=== PATIENT | female | born 1985 | race Caucasian/White ===

== ENCOUNTER → 2017-11-20 13:00 | Outpatient (CLI) | payer OTHER, SELFPAY | DX: Z23 Encounter for immunization (principal) | CPT/HCPCS: 90471; 90686 ==

== ENCOUNTER 2018-10-09 15:38 | Emergency (ER) | payer OTHER, SELFPAY ==
[2018-10-09 15:57] VITALS: BP 146/99; PULSE 84; RESP 16; O2SAT 99
[2018-10-09 16:00] VITALS: BP 146/99; PULSE 84; RESP 16; TEMP 36.8; O2SAT 99
--- NOTE | 2018-10-09 16:11 | DI.US.S_ITS ---
PROCEDURE: US PELVIC COMPLETE INDICATIONS: RIGHT PELVIC PAIN TECHNIQUE: Real-time scanning was performed of the pelvic organs, with image documentation. Additional endovaginal scanning was necessary due to incomplete visualization of the adnexal and endometrial structures by transabdominal scanning. COMPARISON: No prior studies are available for comparison. FINDINGS: Transabdominal scanning: Limited scanning through the kidneys shows no hydronephrosis. No pathologic free abdominal or pelvic fluid. Endovaginal scanning: Uterus: Uterus is normal in size at 8.8 x 4.3 x 5 x 7 cm. The endometrium measures 10 mm in combined thickness. Ovaries: The right ovary measures 2.4 x 3.4 x 4.4 cm and demonstrates a simple appearing cyst that measures up to 3.8 cm. The left ovary measures 2.3 x 1.1 x 1 cm. The left ovary demonstrates a pedunculated simple cyst that measures up to 1 cm. No adnexal masses are seen. IMPRESSION: No significant pelvic ultrasound abnormality is seen. 3.8 cm simple appearing right ovarian cyst. At clinical discretion, a followup pelvic ultrasound is suggested in 6 weeks to assure resolution/ improvement. Dictated by: Jerald Rodríguez M.D. on 10/09/2018 at 16:51 Approved by: Jerald Rodríguez M.D. on 10/09/2018 at 16:54
[2018-10-09 16:43] LABS: Add Manual Diff / Slide Review NO; Basophils Absolute Auto 0 /uL (0-100); Basophils Percent Auto 0.7 % (0-2); Eosinophils Absolute Auto 100 /uL (0-450); Eosinophils Percent Auto 1.5 % (2-4); Hematocrit 40.9 % (36-46); Lymphocytes Absolute Auto 1900 /uL (1100-4500); Mean Corpuscular HGB Conc 34.3 % (30-36); Mean Corpuscular Hemoglobin 30.6 PG (26-34); Mean Corpuscular Volume 89.2 fL (80-100); Monocytes Absolute Auto 300 /uL (0-900); Monocytes Percent Auto 5.5 % (3-14); Neutrophils Absolute Auto 3500 /uL (1500-7000); Neutrophils Percent Auto 60.3 % (50-75); Platelet Count 183 X10^3/uL (150-400); Red Blood Cell Count 4.59 X10^6/uL (4.0-5.2); Red Cell Distribution Width 12.5 % (11.6-14.8); White Blood Cell Count 5.8 X10^3/uL (4.5-11.0)
[2018-10-09] MEDS: SODIUM CHLORIDE 0.9% 1,000 ML 150 ML IV (16:47)
[2018-10-09] MEDS: MORPHINE 4 MG/ML INJ IV ×2 (16:47→18:27)
[2018-10-09] MEDS: ONDANSETRON 4 MG/2 ML INJ IV ×2 (16:47→18:27)
[2018-10-09 17:00] VITALS: BP 120/83; PULSE 58; O2SAT 98
[2018-10-09 17:05] LABS: HEMOLYSIS < 15 (0-50)
[2018-10-09 17:07] LABS: Alanine Aminotransferase 53 IU/L (9-52); Albumin Globulin Ratio 1.2 (1.0-2.8); Alkaline Phosphatase 56 U/L (38-126); Amylase 70 U/L (30-110); Aspartate Aminotransferase 45 IU/L (14-36); Bilirubin Total 0.6 mg/dL (0.2-1.3); Blood Urea Nitrogen 12 mg/dL (7-17); Calcium 8.7 mg/dL (8.4-10.2); Carbon Dioxide 23 mmol/L (22-32); Chloride 108 mmol/L (98-107); Estimated Glomerular Filt Rate > 60.0 mL/min (>60); Globulin 3.4 g/dL (1.7-4.1); Glucose 88 mg/dL (70-100); Lipase 90 U/L (23-300); Sodium 141 mmol/L (137-145); Total Protein 7.4 g/dL (6.3-8.2)
--- NOTE | 2018-10-09 17:55 | ED_ITS ---
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 She states has been going on for evaluated at outside facility on Thursday. She was told she had a 5 cm right- sided ovarian cyst, but when she spoke with OBGYN they stated that they could not rule out torsion. She denies any dysuria urgency or frequency. She denies any fevers nausea vomiting or diarrhea. She denies any vaginal discharge or vaginal itching or other vaginal symptoms. She denies any possibility of sexually transmitted infection. She has history of an appendectomy, cholecystectomy as well as ovarian cyst. She states she does not believe she is , but has had missed several periods in the past few months, which she attributes to stress. Related Data Previous Rx's Medication Instructions Recorded hydrocodone-acetaminophen [[place]] 1 tab PO Q4-6H PRN #10 tab 10/09/18 ketorolac 10 mg PO TID PRN #20 tab 10/09/18 ondansetron 4 mg PO Q6H PRN #20 tab 10/09/18 Allergies Allergy/AdvReac Type Severity Reaction Status Date / Time clindamycin Allergy Unknown Verified 10/09/18 16:21 levofloxacin [From Levaquin] Allergy Unknown Verified 10/09/18 16:21 Penicillins Allergy Unknown Verified 10/09/18 16:21 Review of Systems <ALYCIA CallawayBC - Last Filed: 10/09/18 19:25> Review of Systems Narrative: GENERAL: Denies chills, fatigue, malaise, fever, sweats. HEENT: Denies sinus pain, ear pain, sore throat, difficulty swallowing, dizziness. RESPIRATORY: Denies dyspnea, cough, wheezing, hemoptysis, sputum. CARDIOVASCULAR: Denies chest pain, palpitations, orthopnea, edema, GASTROINTESTINAL: See HPI : Denies dysuria, frequency, incontinence, hematuria, urinary retention. MUSCULOSKELETAL: denies weakness, joint pain, or bony pain SKIN: Denies rash, skin lesions, or other NEUROLOGIC: Denies weakness, headache, numbness, change in speech, confusion, seizures, incoordination. PSYCHIATRIC: No concerning psychosocial issues. 12 point review of systems is negative except for those stated above PFSH <EVANGELINA Callaway - Last Filed: 10/09/18 19:25> Surgical History (Updated 10/09/18 @ 17:57 by EVANGELINA Callaway) History of appendectomy (Acute) History of cholecystectomy (Acute) Social History Smoking Status: Never smoker Social History Smoking Status: Never smoker Exam <EVANGELINA Callaway - Last Filed: 10/09/18 19:25> Narrative Exam Narrative: GENERAL: This is a well-nourished, well-developed patient, in no acute distress HEAD: Atraumatic. Normocephalic. No temporal or scalp tenderness. EYES: Pupils equal round and reactive. Extraocular motions intact. No scleral icterus. No injection or drainage. ENT: Nose without bleeding, purulent drainage or septal hematoma. Throat without erythema, tonsillar hypertrophy or exudate. Uvula midline. Airway patent. NECK: Trachea midline. No JVD or lymphadenopathy. Supple, nontender, no meningeal signs. CARDIOVASCULAR: Regular rate and rhythm without murmurs, gallops, or rubs. RESPIRATORY: Clear to auscultation. Breath sounds equal bilaterally. No wheezes, rales, or rhonchi. No cough. No increased respiratory effort. No accessory muscle use. GASTROINTESTINAL: Abdomen soft, diffusely tender right lower quadrant nondistended. No hepato-splenomegaly, or palpable masses. No guarding. Active b owel sounds all 4 quadrants. EXTREMITIES: No clubbing, cyanosis, or edema. No joint tenderness, effusion, or edema noted. BACK: Nontender without deformity or crepitance. No flank tenderness. NEURO: AOx3. SKIN: No rash or erythema. Initial Vital Signs Initial Vital Signs: Vital Signs Pulse Rate 84 10/09/18 15:57 Respiratory Rate 16 10/09/18 15:57 Blood Pressure 146/99 H 10/09/18 15:57 Pulse Oximetry 99 10/09/18 15:57 <George Medrano DO - Last Filed: 10/10/18 07:11> Initial Vital Signs Initial Vital Signs: Vital Signs Pulse Rate 84 10/09/18 15:57 Respiratory Rate 16 10/09/18 15:57 Blood Pressure 146/99 H 10/09/18 15:57 Pulse Oximetry 99 10/09/18 15:57 Course <EVANGELINA Callaway - Last Filed: 10/09/18 19:25> Orders Ordered: Discontinued Medications Hydrocodone Bitart/Acetaminophen ([place] 5/325) 1 tab PO NOW ONE Stop: 10/09/18 18:16 Last Admin: 10/09/18 19:41 Dose: 1 tab Documented by: KAT Hydrocodone Bitart/Acetaminophen (Vicodin Prepack) 1 bottle MISC SEEINSTR ONE Stop: 10/09/18 18:16 Last Admin: 10/09/18 19:41 Dose: 1 bottle Documented by: KAT Sodium Chloride (Normal Saline 0.9%) 1,000 mls @ 150 mls/hr IV CONT PADDY Last Infusion: 10/09/18 19:41 Dose: 0 mls/hr Documented by: Admin: 10/09/18 16:47 Dose: 150 mls/hr Documented by: KAT Ketorolac Tromethamine (Toradol) 30 mg IV NOW ONE Stop: 10/09/18 18:15 Last Admin: 10/09/18 18:27 Dose: 30 mg Documented by: PERCY Ketorolac Tromethamine (Toradol 10mg Prepack) 1 bottle MISC SEEINSTR ONE Stop: 10/09/18 18:16 Last Admin: 10/09/18 19:41 Dose: 1 bottle Documented by: KAT Morphine Sulfate (Morphine) 4 mg IV NOW ONE Stop: 10/09/18 16:12 Last Admin: 10/09/18 16:47 Dose: 4 mg Documented by: KAT Morphine Sulfate (Morphine) 4 mg IV NOW ONE Stop: 10/09/18 18:15 Last Admin: 10/09/18 18:27 Dose: 4 mg Documented by: PERCY Ondansetron HCl (Zofran) 4 mg IV NOW ONE Stop: 10/09/18 16:12 Last Admin: 10/09/18 16:47 Dose: 4 mg Documented by: KAT Ondansetron HCl (Zofran) 4 mg IV NOW ONE Stop: 10/09/18 18:15 Last Admin: 10/09/18 18:27 Dose: 4 mg Documented by: PERCY Ondansetron HCl (Zofran Odt Prepack) 1 bottle MISC SEEINSTR ONE Stop: 10/09/18 18:16 Last Admin: 10/09/18 19:42 Dose: 1 bottle Documented by: KAT Vital Signs Vital signs: Vital Signs - 8 hr 10/09/18 15:57 10/09/18 16:00 10/09/18 17:00 Temperature 98.2 F Pulse Rate 84 84 58 L Respiratory Rate 16 16 Blood Pressure 146/99 H Blood Pressure [Left Arm] 146/99 H 120/83 Pulse Oximetry 99 99 98 10/09/18 18:00 Temperature Pulse Rate 63 Respiratory Rate Blood Pressure Blood Pressure [Left Arm] 120/84 Pulse Oximetry 99 <George Medrano DO - Last Filed: 10/10/18 07:11> Orders Ordered: Discontinued Medications Hydrocodone Bitart/Acetaminophen ([place] 5/325) 1 tab PO NOW ONE Stop: 10/09/18 18:16 Last Admin: 10/09/18 19:41 Dose: 1 tab Documented by: KAT Hydrocodone Bitart/Acetaminophen (Vicodin Prepack) 1 bottle MISC SEEINSTR ONE Stop: 10/09/18 18:16 Last Admin: 10/09/18 19:41 Dose: 1 bottle Documented by: KAT Sodium Chloride (Normal Saline 0.9%) 1,000 mls @ 150 mls/hr IV CONT PADDY Last Infusion: 10/09/18 19:41 Dose: 0 mls/hr Documented by: Admin: 10/09/18 16:47 Dose: 150 mls/hr Documented by: KAT Ketorolac Tromethamine (Toradol) 30 mg IV NOW ONE Stop: 10/09/18 18:15 Last Admin: 10/09/18 18:27 Dose: 30 mg Documented by: PERCY Ketorolac Tromethamine (Toradol 10mg Prepack) 1 bottle MISC SEEINSTR ONE Stop: 10/09/18 18:16 Last Admin: 10/09/18 19:41 Dose: 1 bottle Documented by: KAT Morphine Sulfate (Morphine) 4 mg IV NOW ONE Stop: 10/09/18 16:12 Last Admin: 10/09/18 16:47 Dose: 4 mg Documented by: KAT Morphine Sulfate (Morphine) 4 mg IV NOW ONE Stop: 10/09/18 18:15 Last Admin: 10/09/18 18:27 Dose: 4 mg Documented by: PERCY Ondansetron HCl (Zofran) 4 mg IV NOW ONE Stop: 10/09/18 16:12 Last Admin: 10/09/18 16:47 Dose: 4 mg Documented by: KAT Ondansetron HCl (Zofran) 4 mg IV NOW ONE Stop: 10/09/18 18:15 Last Admin: 10/09/18 18:27 Dose: 4 mg Documented by: PERCY Ondansetron HCl (Zofran Odt Prepack) 1 bottle [facility] SEEINSTR ONE Stop: 10/09/18 18:16 Last Admin: 10/09/18 19:42 Dose: 1 bottle Documented by: KAT Vital Signs Vital signs: Vital Signs - 8 hr 10/09/18 15:57 10/09/18 16:00 10/09/18 17:00 Temperature 98.2 F Pulse Rate 84 84 58 L Respiratory Rate 16 16 Blood Pressure 146/99 H Blood Pressure [Left Arm] 146/99 H 120/83 Pulse Oximetry 99 99 98 10/09/18 18:00 Temperature Pulse Rate 63 Respiratory Rate Blood Pressure Blood Pressure [Left Arm] 120/84 Pulse Oximetry 99 MDM - Female Genitourinary <FRANCESCA Callaway- - Last Filed: 10/09/18 19:25> Lab Data Result diagrams: 10/09/18 16:35 10/09/18 16:35 Labs: Lab Results 10/09/18 10/09/18 Range/Units 16:35 16:35 WBC 5.8 (4.5-11.0) X10^3/uL RBC 4.59 (4.0-5.2) X10^6/uL Hgb 14.0 (12.0-16.0) g/dL Hct 40.9 (36-46) % MCV 89.2 (80-100) fL MCH 30.6 (26-34) PG MCHC 34.3 (30-36) % RDW 12.5 (11.6-14.8) % Plt Count 183 (150-400) X10^3/uL Neut % (Auto) 60.3 (50-75) % Lymph % (Auto) 32.0 (25-40) % Rabun % (Auto) 5.5 (3-14) % Eos % (Auto) 1.5 L (2-4) % Baso % (Auto) 0.7 (0-2) % Neut # (Auto) 3500 (7149-3802) /uL Lymph # (Auto) 1900 (8031-4410) /uL Rabun # (Auto) 300 (0-900) /uL Eos # (Auto) 100 (0-450) /uL Baso # (Auto) 0 (0-100) /uL Sodium 141 (137-145) mmol/L Potassium 4.0 (3.4-5.1) mmol/L Chloride 108 H (98-107) mmol/L Carbon Dioxide 23 (22-32) mmol/L BUN 12 (7-17) mg/dL Creatinine 0.60 (0.52-1.04) mg/dL Estimated GFR > 60.0 (>60) mL/min BUN/Creatinine Ratio 20.0 (6-22) Glucose 88 (70-100) mg/dL Calcium 8.7 (8.4-10.2) mg/dL Total Bilirubin 0.6 (0.2-1.3) mg/dL AST 45 H (14-36) IU/L ALT 53 H (9-52) IU/L Alkaline Phosphatase 56 (38-126) U/L Total Protein 7.4 (6.3-8.2) g/dL Albumin 4.0 (3.5-5.0) g/dL Globulin 3.4 (1.7-4.1) g/dL Albumin/Globulin Ratio 1.2 (1.0-2.8) Amylase 70 (30-110) U/L Lipase 90 (23-300) U/L Point of Care Testing Test Results Negative Urine Dip Bedside Urine Glucose Negative Bedside Urine Bilirubin - Negative Bedside Urine Ketone - Negative Urine Specific [place] 1.015 Bedside Urine Occult Blood - Negative Bedside Urine pH 6.0 Bedside Urine Protein +/- 15 Bedside Urine Urobilinogen +/- 1mg Bedside Urine Nitrite - Negative Bedside Urine Leukocytes - Negative Esterase Imaging Data pelvic us: Radiologist's impression: Patient: Gaye Guajardo [facility]#: [id number] : 1985Acct:[id number] Age/Sex: 33 / FDate of Service: 10/09/18 Loc: ED Accession Number: [id number] Procedure: US pelvic complete Ordering Provider: Kaylie Frost- PROCEDURE: US PELVIC COMPLETE INDICATIONS: RIGHT PELVIC PAIN TECHNIQUE: Real-time scanning was performed of the pelvic organs, with image documentation. Additional endovaginal scanning was necessary due to incomplete visualization of the adnexal and endometrial structures by transabdominal scanning. COMPARISON: No prior studies are available for comparison. FINDINGS: Transabdominal scanning: Limited scanning through the kidneys shows no hydronephrosis. No pathologic free abdominal or pelvic fluid. Endovaginal scanning: Uterus: Uterus is normal in size at 8.8 x 4.3 x 5 x 7 cm. The endometrium measures 10 mm in combined thickness. Ovaries: The right ovary measures 2.4 x 3.4 x 4.4 cm and demonstrates a simple appearing cyst that measures up to 3.8 cm. The left ovary measures 2.3 x 1.1 x 1 cm. The left ovary demonstrates a pedunculated simple cyst that measures up to 1 cm. No adnexal masses are seen. IMPRESSION: No significant pelvic ultrasound abnormality is seen. 3.8 cm simple appearing right ovarian cyst. At clinical discretion, a followup pelvic ultrasound is suggested in 6 weeks to assure resolution/ improvement. Dictated by: Jerald Rodríguez M.D. on 10/09/2018 at 16:51 Approved by: Jerald Rodríguez M.D. on 10/09/2018 at 16:54 [facility] Narrative Medical decision making narrative: The patient is a 33-year-old female who p resents with a chief complaint of a right ovarian cyst pain, concern for torsion. Her pain was medicated as documented in the emergency department. She is nontoxic appearing, has overall benign lab work and urinalysis. Ultrasound shows a right-sided ovarian cyst with no evidence of torsion. I discussed at length follow up with supervisory cbp officer as scheduled, discussed pain and nausea medications. Discussed not combining Toradol with any other NSAIDs such as Aleve or ibuprofen. Discussed that [place] can be constipating and sedating. Discussed going back to the ER for any acute concerns. No questions or concerns upon discharge. The patient already has follow-up scheduled with OB on Thursday. <George Medrano, DO - Last Filed: 10/10/18 07:11> Lab Data Labs: Lab Results 10/09/18 10/09/18 Range/Units 16:35 16:35 WBC 5.8 (4.5-11.0) X10^3/uL RBC 4.59 (4.0-5.2) X10^6/uL Hgb 14.0 (12.0-16.0) g/dL Hct 40.9 (36-46) % MCV 89.2 (80-100) fL MCH 30.6 (26-34) PG MCHC 34.3 (30-36) % RDW 12.5 (11.6-14.8) % Plt Count 183 (150-400) X10^3/uL Neut % (Auto) 60.3 (50-75) % Lymph % (Auto) 32.0 (25-40) % Rabun % (Auto) 5.5 (3-14) % Eos % (Auto) 1.5 L (2-4) % Baso % (Auto) 0.7 (0-2) % Neut # (Auto) 3500 (4514-0420) /uL Lymph # (Auto) 1900 (7953-1674) /uL Rabun # (Auto) 300 (0-900) /uL Eos # (Auto) 100 (0-450) /uL Baso # (Auto) 0 (0-100) /uL Sodium 141 (137-145) mmol/L Potassium 4.0 (3.4-5.1) mmol/L Chloride 108 H (98-107) mmol/L Carbon Dioxide 23 (22-32) mmol/L BUN 12 (7-17) mg/dL Creatinine 0.60 (0.52-1.04) mg/dL Estimated GFR > 60.0 (>60) mL/min BUN/Creatinine Ratio 20.0 (6-22) Glucose 88 (70-100) mg/dL Calcium 8.7 (8.4-10.2) mg/dL Total Bilirubin 0.6 (0.2-1.3) mg/dL AST 45 H (14-36) IU/L ALT 53 H (9-52) IU/L Alkaline Phosphatase 56 (38-126) U/L Total Protein 7.4 (6.3-8.2) g/dL Albumin 4.0 (3.5-5.0) g/dL Globulin 3.4 (1.7-4.1) g/dL Albumin/Globulin Ratio 1.2 (1.0-2.8) Amylase 70 (30-110) U/L Lipase 90 (23-300) U/L Point of Care Testing Test Results Negative Urine Dip Bedside Urine Glucose Negative Bedside Urine Bilirubin - Negative Bedside Urine Ketone - Negative Urine Specific [place] 1.015 Bedside Urine Occult Blood - Negative Bedside Urine pH 6.0 Bedside Urine Protein +/- 15 Bedside Urine Urobilinogen +/- 1mg Bedside Urine Nitrite - Negative Bedside Urine Leukocytes - Negative Esterase Discharge Plan Departure Patient Disposition: Home Clinical Impression: Ovarian cyst Qualifiers: Laterality: right Qualified Code(s): N83.201 - Unspecified ovarian cyst, right side Discharge Date/Time: 10/09/18 19:51 Instructions: DI for Ovarian Cyst Activity Restrictions/Additional Instructions: Stop being stubborn and take care of yourself. We like you too much and want to keep you here. Follow-up with your supervisory cbp officer as scheduled. Do not combine Toradol with NSAIDs such as Aleve or ibuprofen Be aware that the [place] can be constipating and sedating. Do not take and drive. Do not take a drink alcohol. Monitor for worsening pain, come back to the emergency department for any acute concerns Prescriptions: New hydrocodone-acetaminophen [[place]] 5-325 mg tablet 1 tab PO Q4-6H PRN (Reason: pain) Qty: 10 RF: 0 ondansetron 4 mg tablet,disintegrating 4 mg PO Q6H PRN (Reason: nausea and vomiting) Qty: 20 RF: 0 ketorolac 10 mg tablet 10 mg PO TID PRN (Reason: pain) Qty: 20 RF: 0 Referrals: [facility] [Outside] <George Medrano DO - Last Filed: 10/10/18 07:11> Sign Out Provider Sign Out Attestation: I was available for consultation during this patient's emergency department encounter
[2018-10-09 18:00] VITALS: BP 120/84; PULSE 63; O2SAT 99
[2018-10-09] MEDS: KETOROLAC 60 MG/2 ML VIAL 30 MG IV (18:27)
[2018-10-09 19:00] VITALS: BP 131/82; PULSE 61; RESP 16; O2SAT 99
[2018-10-09] MEDS: KETOROLAC 10MG PREPACK 1 BOTTLE MISC (19:41)
[2018-10-09] MEDS: HYDROCODONE/ACET 5/325 TABLET 1 TAB PO (19:41)
[2018-10-09] MEDS: HYDROCODONE/ACET 5/325 PREPACK 1 BOTTLE MISC (19:41)
[2018-10-09] MEDS: ONDANSETRON 4 MG ODT PREPACK 1 BOTTLE MISC (19:42)
== END 2018-10-09 19:51 | disposition home or self-care (01) ==
PROVIDERS: Emergency Provider Nurse Practitioner Family
DX: N83.201 Unspecified ovarian cyst, right side (principal)
CPT/HCPCS: 36591; 76830; 76856; 80053; 81003; 81025; 82150; 83690; 85025; 96361; 96374; 96375; 96376; 99283; 99284; J1885; J2270; J2405

== ENCOUNTER → 2018-10-20 12:21 | Outpatient (CLI) | payer OTHER, SELFPAY ==
[2018-10-20 13:09] LABS: Add Manual Diff / Slide Review NO; Basophils Absolute Auto 100 /uL (0-100); Basophils Percent Auto 0.7 % (0-2); Eosinophils Absolute Auto 200 /uL (0-450); Eosinophils Percent Auto 2.4 % (2-4); Hematocrit 43.7 % (36-46); Hemoglobin 14.8 g/dL (12.0-16.0); Lymphocytes Absolute Auto 2300 /uL (1100-4500); Lymphocytes Percent Auto 33.5 % (25-40); Mean Corpuscular HGB Conc 33.9 % (30-36); Mean Corpuscular Hemoglobin 30.4 PG (26-34); Mean Corpuscular Volume 89.7 fL (80-100); Monocytes Absolute Auto 400 /uL (0-900); Monocytes Percent Auto 5.6 % (3-14); Neutrophils Absolute Auto 3900 /uL (1500-7000); Neutrophils Percent Auto 57.8 % (50-75); Platelet Count 242 X10^3/uL (150-400); Red Blood Cell Count 4.87 X10^6/uL (4.0-5.2); Red Cell Distribution Width 12.5 % (11.6-14.8); White Blood Cell Count 6.8 X10^3/uL (4.5-11.0)
[2018-10-20 13:52] LABS: Alanine Aminotransferase 35 IU/L (9-52); Albumin 4.6 g/dL (3.5-5.0); Albumin Globulin Ratio 1.4 (1.0-2.8); Alkaline Phosphatase 62 U/L (38-126); Aspartate Aminotransferase 28 IU/L (14-36); Bilirubin Total 0.6 mg/dL (0.2-1.3); Blood Urea Nitrogen 14 mg/dL (7-17); Calcium 10.2 mg/dL (8.4-10.2); Carbon Dioxide 26 mmol/L (22-32); Chloride 102 mmol/L (98-107); Estimated Glomerular Filt Rate > 60.0 mL/min (>60); Globulin 3.2 g/dL (1.7-4.1); Glucose 84 mg/dL (70-100); HEMOLYSIS < 15 (0-50); Potassium 4.2 mmol/L (3.4-5.1); Sodium 142 mmol/L (137-145); Total Protein 7.8 g/dL (6.3-8.2)
== END ==
PROVIDERS: Visit Provider Hospitalist
DX: R10.9 Unspecified abdominal pain (principal)
CPT/HCPCS: 36415; 80053; 85025

== ENCOUNTER → 2018-12-24 16:29 | Outpatient (CLI) | payer OTHER, SELFPAY | DX: Z23 Encounter for immunization (principal) | CPT/HCPCS: 90471; 90686 ==

== ENCOUNTER → 2019-06-24 17:06 | Outpatient (CLI) | payer OTHER, SELFPAY | PROVIDERS: Visit Provider Nurse Practitioner | DX: N39.0 Urinary tract infection, site not specified (principal) | CPT/HCPCS: 87077; 87086 ==

== ENCOUNTER → 2019-08-16 09:10 | Outpatient (CLI) | payer OTHER, SELFPAY ==
[2019-08-16 11:58] LABS: COVID19 -Nasal RAPID Negative (Negative)
== END ==
PROVIDERS: Visit Provider Physician Assistant
DX: Z03.818 Encounter for observation for suspected exposure to other biological agents ruled out (principal)
CPT/HCPCS: 87635

== ENCOUNTER → 2019-10-25 10:58 | Outpatient (CLI) | payer OTHER, SELFPAY | PROVIDERS: PCP Nurse Practitioner; Visit Provider Registered Nurse | DX: R30.0 Dysuria (principal) | CPT/HCPCS: 87077; 87086 ==

== ENCOUNTER → 2019-11-10 07:34 | Outpatient (CLI) | payer OTHER, SELFPAY ==
[2019-11-10 09:07] LABS: Add Manual Diff / Slide Review NO; Basophils Absolute Auto 0 /uL (0-100); Basophils Percent Auto 0.4 % (0-2); Eosinophils Absolute Auto 200 /uL (0-450); Eosinophils Percent Auto 2.4 % (2-4); Hematocrit 43.2 % (36-46); Hemoglobin 14.9 g/dL (12.0-16.0); Lymphocytes Absolute Auto 2100 /uL (1100-4500); Lymphocytes Percent Auto 32.8 % (25-40); Mean Corpuscular HGB Conc 34.5 % (30-36); Mean Corpuscular Hemoglobin 30.6 PG (26-34); Mean Corpuscular Volume 88.7 fL (80-100); Monocytes Absolute Auto 400 /uL (0-900); Monocytes Percent Auto 6.3 % (3-14); Neutrophils Absolute Auto 3700 /uL (1500-7000); Neutrophils Percent Auto 58.1 % (50-75); Platelet Count 175 X10^3/uL (150-400); Red Blood Cell Count 4.88 X10^6/uL (4.0-5.2); Red Cell Distribution Width 13.1 % (11.6-14.8); White Blood Cell Count 6.3 X10^3/uL (4.5-11.0)
[2019-11-10 09:12] LABS: Alanine Aminotransferase 128 IU/L (<35); Albumin 4.3 g/dL (3.5-5.0); Albumin Globulin Ratio 1.3 (1.0-2.8); Alkaline Phosphatase 58 U/L (38-126); Aspartate Aminotransferase 68 IU/L (14-36); BUN Creatinine Ratio 18.5 (6-22); Blood Urea Nitrogen 12 mg/dL (7-17); Calcium 9.2 mg/dL (8.4-10.2); Carbon Dioxide 25 mmol/L (22-32); Chloride 107 mmol/L (98-107); Cholesterol 141 mg/dL (140-199); Estimated Glomerular Filt Rate > 60.0 mL/min (>60); Globulin 3.4 g/dL (1.7-4.1); Glucose 86 mg/dL (70-100); HDL Cholesterol 26 mg/dL (40-60); HEMOLYSIS < 15 (0-50); LDL Cholesterol Calculated 96 mg/dL (<100); Potassium 3.9 mmol/L (3.4-5.1); Sodium 140 mmol/L (137-145); Total Protein 7.7 g/dL (6.3-8.2); Triglycerides 97 mg/dL (35-150)
[2019-11-10 09:54] LABS: Free T3, Triiodothyronine Free 2.89 pg/mL (2.77-5.27); Free T4, Direct Thyroxine 1.16 ng/dL (0.78-2.19)
[2019-11-10 10:08] LABS: Thyroid Stimulating Hormone 1.83 uIU/mL (0.47-4.68)
== END ==
PROVIDERS: PCP Nurse Practitioner; Referring Provider Nurse Practitioner; Visit Provider Nurse Practitioner
DX: Z00.00 Encounter for general adult medical examination without abnormal findings (principal); I49.8 Other specified cardiac arrhythmias
CPT/HCPCS: 36415; 80053; 80061; 84439; 84443; 84481; 85025

== ENCOUNTER → 2019-11-17 15:03 | Outpatient (CLI) | payer OTHER, SELFPAY ==
--- NOTE | 2019-12-09 16:51 | P.HOLT.S_ITS ---
Pharmacy Account Director Report Referral & Results Date Patient Seen: 11/17/19 Requesting provider: Virginia Ríos Indication: Arrhythmia Duration of monitoring (days): 7 Diary information: There were 15 patient triggered events and 5 patient diary entries Patient triggered events were associated with (within 45 seconds) sinus rhythm, PVCs, and PACs Patient diary event was associated only with sinus rhythm Data: Minimum heart rate identified was 41 beats per minute at 12:59 on 11/22/2019 Maximum heart rate was 166 beats per minute at 18:21 on 11/19/2019 Less than 1% of identified beats rather ventricular supraventricular ectopic in origin Impression: Patient's symptoms potentially associated with simple PVCs and or PACs. No more serious dysrhythmia identified on this study
== END ==
PROVIDERS: PCP Nurse Practitioner; Referring Provider Nurse Practitioner; Visit Provider Nurse Practitioner
DX: I49.9 Cardiac arrhythmia, unspecified (principal)
CPT/HCPCS: 0296T; 0298T

== ENCOUNTER → 2019-12-02 13:27 | Outpatient (CLI) | payer OTHER, SELFPAY ==
--- NOTE | 2019-12-02 13:28 | DI.ECHO.S_ITS ---
[place] [facility]---------+ [facility] +---------+ : : [address] [place] : : : : [id number] : : : : Phone: [phone] Echocardiogram Report + + :Name: CORETTA ACOSTA Study Date: 12/02/2019 Height: 70 in : :[facility] Weight: 252 lb : : Gender: Female BSA: 2.3 m2 : :: 1985 Age: 34 yrs BP: 112/80 mmHg: :Reason For Study: PALPITATIONS : : Performed By: Venkatesh May : :Referring: LUIS MCCLENDON : + + Interpretation Summary 1) Normal left ventricular thickness, size, wall motion and systolic function (EF 55-60%). 2) Upper normal right ventricular size with normal function. 3) No significant valvular abnormalities. 4) No prior Echo available for comparison. Procedure: A two-dimensional transthoracic echocardiogram with color flow and Doppler was performed. The study quality was technically good. There is no prior echocardiogram noted for this patient. The patient was in normal sinus rhythm during the exam. Left Ventricle: The left ventricle is normal in size. There is normal left ventricular wall thickness. The ejection fraction is estimated to be 55-60%. There are no focal wall motion abnormalities. Right Ventricle: The right ventricle is at the upper limits of normal in size. The right ventricular systolic function is normal. Atria: Both atria are normal in size. Mitral Valve: The mitral valve is normal in structure and function. There is trace mitral regurgitation. Aortic Valve: The aortic valve is trileaflet. The aortic valve opens well. There is no aortic valve stenosis. No aortic regurgitation is present. Tricuspid Valve: The tricuspid valve is normal in structure and function. There is mild tricuspid regurgitation. The right ventricular systolic pressure is estimated to be at least 21 mmHg based on an estimated right atrial pressure of 3 mm Hg. Pulmonic Valve: The pulmonic valve is normal in structure and function. There is trace pulmonic regurgitation. Great Vessels: The aortic root is normal size. The dimensions of the ascending aorta are normal. The pulmonary artery is normal size. The IVC is of normal diameter and collapses greater than 50% with a sniff. This suggests a low right atrial pressure of 3 mm Hg. Pericardium/ Pleura There is no pericardial effusion. There is no pleural effusion. MMode/2D Measurements & Calculations LVIDd: 5.1 cm LVOT diam: 2.2 cm LVIDs: 3.2 cm Ao root diam: 3.0 cm FS: 37.8 % asc Aorta Diam: 2.7 cm EPSS: 0.27 cm Ao Arch Diam (Prox Trans): 2.5 cm IVSd: 0.81 cm LVPWd: 0.70 cm LV liu. diameter/BSA (cm/m^2): 2.2 LV sys. diameter/BSA (cm/m^2): 1.4 LA dimension: 3.9 cm RA long axis: 5.1 cm LA A2 area: 22.2 cm2 RA area: 21.1 cm2 LA A4 area: 21.0 cm2 RA vol: 73.6 ml LA length (vol): 5.8 cm RA : 32.0 ml/m2 LA vol: 68.2 ml IVC diam: 2.1 cm LA vol index: 29.6 ml/m2 RVD1 (basal): 4.1 cm RVD2 (mid): 4.5 cm Doppler Measurements & Calculations Ao V2 max: 115.1 cm/sec LVOT Max Braulio: 101.7 cm/sec Ao V2 mean: 92.0 cm/sec LV V1 max P.1 mmHg Ao max P.3 mmHg LV V1 VTI: 22.7 cm Ao mean P.5 mmHg ANDRES(I,D): 3.0 cm2 Ao V2 VTI: 27.7 cm ANDRES(V,D): 3.3 cm2 sev ratio: 0.82 ANDRES indexed to BSA (cm^2/m^2): 1.3 MV E max braulio: 60.3 cm/sec TR max braulio: 213.2 cm/sec MV A max braulio: 50.9 cm/sec TR max P.2 mmHg MV E/A: 1.2 PA V2 max: 68.0 cm/sec Med Peak E' Braulio: 8.5 cm/sec PA V2 mean: 52.8 cm/sec E/E' med: 7.1 PA mean P.2 mmHg Lat Peak E' Braulio: 11.9 cm/sec PA pr(Accel): 19.1 mmHg E/E' lat: 5.1 E/e' average: 6.1 MV dec time: 0.17 sec SV(LVOT): 84.0 ml Reading Physician:04:17 PM
== END ==
PROVIDERS: PCP Nurse Practitioner; Referring Provider Nurse Practitioner; Visit Provider Nurse Practitioner
DX: I07.1 Rheumatic tricuspid insufficiency (principal); R00.2 Palpitations; I49.8 Other specified cardiac arrhythmias
CPT/HCPCS: 93306

== ENCOUNTER → 2019-12-05 11:16 | Outpatient (CLI) | payer OTHER, SELFPAY ==
[2019-12-06 05:43] LABS: HBsAg Screen Negative (Negative); Hepatitis A Antibody IgM Negative (Negative); Hepatitis B Core Antibody IgM Negative (Negative); Hepatitis C Antibody <0.1 s/co ratio (0.0-0.9)
== END ==
PROVIDERS: PCP Nurse Practitioner; Referring Provider Nurse Practitioner; Visit Provider Nurse Practitioner
DX: R74.8 Abnormal levels of other serum enzymes (principal)
CPT/HCPCS: 36415; 80074